=== PATIENT | female | born 1970 | race Caucasian/White ===

== ENCOUNTER → 2023-06-09 07:18 | Outpatient (REF) | payer OTHER, SELFPAY | LOC: HWWDC 07:18 | PROVIDERS: ATTENDING PHYSICIAN Family Medicine | DX: Z12.31 Encounter for screening mammogram for malignant neoplasm of breast (principal) | CPT/HCPCS: 77063; 77067 ==

== ENCOUNTER → 2024-08-06 11:12 | Outpatient (REF) | payer OTHER, SELFPAY | LOC: WDC 11:12 | PROVIDERS: ATTENDING PHYSICIAN Obstetrics & Gynecology Gynecology; FAMILY PHYSICIAN Family Medicine | DX: Z12.31 Encounter for screening mammogram for malignant neoplasm of breast (principal) | CPT/HCPCS: 77063; 77067 ==

== ENCOUNTER → 2025-03-04 09:17 | Outpatient (REF) | payer OTHER, SELFPAY | LOC: EMG 09:17 | PROVIDERS: ATTENDING PHYSICIAN Family Medicine | DX: R20.2 Paresthesia of skin (principal) | CPT/HCPCS: 95886; 95913 ==